=== PATIENT | male | born 1990 | race Asian ===

== ENCOUNTER 2024-08-25 08:10 | Emergency (ER) | payer OTHER, SELFPAY ==
--- NOTE | 2024-08-25 08:15 | ED_ITS ---
HPI - General Adult General Chief complaint: Extremity Injury, Lower Stated complaint: Right leg pain. Time Seen by Provider: 08/25/24 08:15 Source: patient, RN notes reviewed and old records reviewed Mode of arrival: Ambulatory Limitations: language barrier (Does speak Afghan, attempted electrical and instrument engineer line but was unavailable. Did have friend assist with the interpretation.) History of Present Illness HPI narrative: 33-year-old male reports no medical issues. Patient has stepped off a curb twisted his ankle in his had pain with weight-bearing. Describes pain in the lateral side of his ankle. Denies other injuries. States no daily medications. Denies any allergies to drugs. Denies any surgeries or interventions on that extremity in the past. Patient does not have any numbness tingling or weakness. Occurred last night patient has been able to weightbear on it but is uncomfortable. Patient is accompanied by his boss who states that he does not normally complain of any pain so they came for evaluation. Patient does speak Afghan but primary language is Tunisian. He does live locally. Language line was used but had difficulty obtaining an electrical and instrument engineer that speaks Tunisian from the language line and friend/co-worker assisted with interpretation. Related Data Allergies Allergy/AdvReac Type Severity Reaction Status Date / Time No Known Drug Allergies Allergy Verified 08/25/24 08:44 Review of Systems Review of Systems ROS Unobtainable: All systems reviewed & are unremarkable except as noted in HPI and below Exam Narrative Exam Narrative: GENERAL: Alert and oriented x three, male in mild distress HEENT: Head normocephalic, atraumatic, EOMI, pupils reactive, face symmetric, moist mucous membranes NECK: Supple, full range of motion CARDIOVASCULAR: Regular rate and rhythm without murmurs, rubs or gallops. RESPIRATORY: Breath sounds equal bilaterally, no wheezes rales or rhonchi. ABDOMEN: Soft, nontender. Normoactive bowel sounds all 4 quadrants. No guarding or rebound, rigidity, no mass EXTREMITIES: Normal range of motion, no clubbing. Neurovascularly intact. Patient has some mild tenderness over the lateral malleoli. Does have some mild swelling over the lateral malleolus as well. No ecchymosis. Good range of motion, no joint laxity. 2+ dorsalis pedis with normal sensation throughout cap refill less than 2 seconds in all 5 toes. No tenderness of the foot or toes, no tenderness of the calcaneus. Nontender in the tibia fibula and knee. NEUROLOGICAL: Cranial nerves II through XII grossly intact. Moving all extremities SKIN: Warm, dry, no petechiae, no rashes or lesions. Initial Vital Signs Initial Vital Signs: Vital Signs Temperature 98.4 F 08/25/24 08:31 Pulse Rate 81 08/25/24 08:31 Respiratory Rate 20 08/25/24 08:31 Blood Pressure 170/90 H 08/25/24 08:31 Pulse Oximetry 93 08/25/24 08:31 Oxygen Delivery Method Room Air 08/25/24 08:31 Course Orders Ordered: ED Orders 08/25/24 08:24 XR ankle RT min 3V Stat Discontinued Medications Ibuprofen (Ibuprofen 400 Mg Tablet) 400 mg PO NOW ONE Stop: 08/25/24 08:43 Last Admin: 08/25/24 09:07 Dose: 400 mg Vital Signs Vital signs: Vital Signs - 8 hr 08/25/24 08:31 Temperature 98.4 F Pulse Rate 81 Respiratory Rate 20 Blood Pressure 170/90 H Pulse Oximetry 93 Oxygen Delivery Method Room Air Medical Decision Making Imaging Data Extremity x-ray #1: Radiologist's Impression: [address] [address] XRay Report Signed Patient: Antonio Ureña MR#: [id number] : 1990 Acct:[id number] Age/Sex: 33 / M Date of Service: 08/25/24 Loc: ED Accession Number: [id number] Procedure: XR ankle RT min 3V Ordering Provider: Susan Mejia D.O. PROCEDURE: XR ANKLE RT MIN 3V INDICATIONS: right ankle pain, stepped off curb wrong, +lat malleoli TECHNIQUE: 3 views of the ankle were acquired. COMPARISON: None. FINDINGS: Bones: No fractures or dislocations. Ankle mortise is normally aligned. No suspicious bony lesions. Soft tissues: No tibiotalar joint effusion. Achilles tendon appears normal. Lateral soft tissue swelling. IMPRESSION: Lateral ankle sprain. No acute bony abnormality or significant effusion. Dictated by: Garett Gray M.D. on 08/25/2024 at 8:56 Approved by: Garett Gray M.D. on 08/25/2024 at 8:57 MDM Narrative Medical decision making narrative: 33-year-old male meet [place] ankle rules for imaging, patient has tenderness over the lateral malleoli in his able to weightbear but it was painful. Imjury was yesterday. Patient received ibuprofen Ankle x-ray shows no acute bony abnormality or significant effusion. Patient had Carlos wrap and crutches to weightbear as tolerated. Plan for follow-up in 7-10 days for recheck if persistent pain. Relayed this to patient with discharge instructions but also through electrical and instrument engineer. Discharge Plan Departure Patient Disposition: Home Clinical Impression: Ankle sprain and strain Instructions: DI for Ankle Sprain Activity Restrictions/Additional Instructions: Follow up in 7-10 days for repeat imaging if you are not having any improvement in symptoms. You can take acetaminophen up to a 1000 mg every 6 hours and/or ibuprofen up to 600 mg every 6 hours as needed for pain. Splint Care: Keep splint clean and dry. Elevated affected body part to decrease swelling. OK to use ice pack on the affected body part. Use for 15-20 minutes each time, for 5-6x per day. If you develop worsening pain, numbness, tingling, discoloration of the affected body part, loosen the CARLOS wrap, and either see your doctor for an urgent re-assessment, or return to the Emergency Department. Return to the Emergency Department for any new or worsening symptoms. Stand Alone Forms: Patient Portal/API
--- NOTE | 2024-08-25 08:24 | DI.RAD.S_ITS ---
PROCEDURE: XR ANKLE RT MIN 3V INDICATIONS: right ankle pain, stepped off curb wrong, +lat malleoli TECHNIQUE: 3 views of the ankle were acquired. COMPARISON: None. FINDINGS: Bones: No fractures or dislocations. Ankle mortise is normally aligned. No suspicious bony lesions. Soft tissues: No tibiotalar joint effusion. Achilles tendon appears normal. Lateral soft tissue swelling. IMPRESSION: Lateral ankle sprain. No acute bony abnormality or significant effusion. Dictated by: Garett Gray M.D. on 08/25/2024 at 8:56 Approved by: Garett Gray M.D. on 08/25/2024 at 8:57
[2024-08-25 08:31] VITALS: BP 170/90; PULSE 81; RESP 20; TEMP 36.9; O2SAT 93; BMI 40.8
--- NOTE | 2024-08-25 08:43 | PC.NURSE ---
friend that pt works with who speaks kazakh in department to help translate
[2024-08-25] MEDS: IBUPROFEN 400 MG TABLET PO (09:07)
== END 2024-08-25 09:11 | disposition home or self-care (01) ==
PROVIDERS: Emergency Provider Emergency Medicine; Referring Provider Emergency Medicine
DX: S93.401A Sprain of unspecified ligament of right ankle, initial encounter (principal); X50.1XXA Overexertion from prolonged static or awkward postures, initial encounter
CPT/HCPCS: 73610; 99283; 99284